=== PATIENT | female | born 1955 | race Caucasian/White ===

== ENCOUNTER 2021-12-20 01:59 | Emergency (ER) | payer MEDICARE, OTHER ==
[2021-12-20 04:09] LABS: HEMOGLOBIN 14.7 gm/dl (12.3-15.3); RED BLOOD COUNT 4.87 M/UL (4.00-5.10); WHITE BLOOD COUNT 10.4 K/UL (4.5-11.0)
[2021-12-20 04:33] LABS: BUN/CREATININE RATIO 12 (0-10)
== END 2021-12-20 06:00 | disposition home or self-care (01) ==
LOC: ER1 01:59
PROVIDERS: Family Medicine
DX: I10 Essential (primary) hypertension (principal); F41.9 Anxiety disorder, unspecified; G47.00 Insomnia, unspecified; Z88.2 Allergy status to sulfonamides
CPT/HCPCS: 80048; 81001; 82550; 82553; 84439; 84443; 84484; 85025; 93005; 99283